=== PATIENT | female | born 1990 | race Caucasian/White ===

== ENCOUNTER 2020-02-25 20:46 | Inpatient (IN) | payer OTHER ==
[~2020-02-25] VITALS: Ht 149.9 cm; Wt 44.9 kg
[2020-02-25 22:15] LABS: HEMATOCRIT. 36.8 % (36.0-48.0); HEMOGLOBIN. 12.3 g/dL (12.0-16.0); MEAN CORPUSCULAR HEMOGLOBIN 29.6 pg (28.0-32.0); MEAN CORPUSCULAR VOLUME 88.6 fL (81.0-99.0); MEAN PLATELET VOLUME 8.5 fl (7.4-10.4); PLATELET 198 x1000/uL (130-400); RED BLOOD CELL COUNT 4.16 mill/uL (4.2-5.4); RED CELL DISTRIBUTION WIDTH 13.8 % (11.6-14.6)
[2020-02-25 22:16] LABS: CHLORIDE 106 mEq/L (98-107)
[2020-02-25 22:19] LABS: CLARITY URINE CLEAR (CLEAR); COLOR URINE YELLOW (YELLOW); KETONES URINE NEGATIVE (NEGATIVE); LEUKOCYTE ESTERASE URINE 2+ (NEGATIVE); NITRITE URINE NEGATIVE (NEGATIVE); OCCULT BLOOD URINE NEGATIVE (NEGATIVE); PROTEIN URINE NEGATIVE (NEGATIVE); SPECIFIC GRAVITY URINE 1.018 (1.005-1.030); UROBILINOGEN URINE 0.2 E.U./dL (0.2-1.0)
[2020-02-25 22:20] LABS: INR 1.1; PROTHROMBIN TIME 11.1 sec (9.6-11.0)
[2020-02-25] MEDS ORDERED: ACETAMINOPHEN 325MG TABLET PO ONE (22:30)
[2020-02-25 22:33] LABS: HCG SCREEN NEGATIVE
[2020-02-25 23:14] LABS: PLATELET ESTIMATE NORMAL
[2020-02-25] MEDS ORDERED: MORPHINE SULFATE 4 MG/ML CPJ (NOT FOR IM USE) IV ONE (23:45)
[2020-02-26] MEDS ORDERED: [UNRECOGNIZED DRUG - MIXTURE] IV SCH (01:45)
[2020-02-26] MEDS ORDERED: PIPERACILLIN/TAZ 3.375G PREMIX 50 ML IV NR (02:15)
[2020-02-26] MEDS ORDERED: MORPHINE SULFATE 2 MG/ML CPJ (NOT FOR IM USE) IV ONE (07:15)
[2020-02-26] MEDS ORDERED: ONDANSETRON HCL 4MG/2ML INJ IV PRN ×3 (08:15→10:30)
[2020-02-26] MEDS ORDERED: MORPHINE SULFATE 2 MG/ML CPJ (NOT FOR IM USE) IV PRN ×3 (08:15→10:30)
[2020-02-26] MEDS ORDERED: DEXT 5%/0.45% NACL KCL 20MEQ/L 1,000 ML IV SCH (09:00)
[2020-02-26] MEDS ORDERED: PIPERACILLIN/TAZ 3.375G PREMIX 50 ML IV SCH (09:00)
[2020-02-26] MEDS ORDERED: SODIUM CHLORIDE 0.9% 1,000 ML IV ONE (10:00)
[2020-02-26] MEDS ORDERED: HYDROMORPHONE HCL/PF 2MG/ML CPJ IV PRN (10:00)
[2020-02-26] MEDS ORDERED: MEPERIDINE HCL/PF 25MG/ML CPJ IV PRN (10:00)
[2020-02-26] MEDS ORDERED: BUPIVACAINE HCL 0.5% (5MG/ML) 50ML ONE (10:01)
[2020-02-26] MEDS ORDERED: SKIN ADHESIVE 0.7 GM EA TOP ONE (10:01)
[2020-02-26] MEDS ORDERED: FENTANYL CITRATE/PF 50MCG/ML 2ML VIAL ONE ×2 (10:17→10:37)
[2020-02-26] MEDS ORDERED: NEOSTIGMINE METHYLSULFATE 1MG/ML 10 ML VIAL ONE (10:17)
[2020-02-26] MEDS ORDERED: PROPOFOL 200MG/20ML VIAL IV ONE (10:17)
[2020-02-26] MEDS ORDERED: MIDAZOLAM HCL 2 MG/2 ML VIAL ONE (10:17)
[2020-02-26] MEDS ORDERED: ROCURONIUM BROMIDE 10MG/ML VIAL 5ML IV ONE (10:17)
[2020-02-26] MEDS ORDERED: SODIUM CHLORIDE 0.9% 10ML VIAL ONE (10:18)
[2020-02-26] MEDS ORDERED: ONDANSETRON HCL 4MG/2ML INJ ONE (10:18)
[2020-02-26] MEDS ORDERED: SUCCINYLCHOLINE CHLORIDE 200MG/10ML IV ONE (10:18)
[2020-02-26] MEDS ORDERED: METOCLOPRAMIDE HCL 10MG/2ML VIAL ONE (10:18)
[2020-02-26] MEDS ORDERED: GLYCOPYRROLATE 0.2 MG/ML 2ML VIAL ONE (10:18)
[2020-02-26] MEDS ORDERED: CEFAZOLIN SODIUM 1000MG/VIAL ONE (10:18)
[2020-02-26] MEDS ORDERED: MORPHINE SULFATE 4 MG/ML CPJ (NOT FOR IM USE) IV PRN (10:30)
[2020-02-26] MEDS ORDERED: HYDROCODONE/ACETAMINOPHEN 5/325MG TABLET PO PRN ×2 (10:30)
[2020-02-26 12:00] VITALS: BP 94/65
[2020-02-26] MEDS ORDERED: PIPERACILLIN/TAZOBACTAM 3.375 G in DEXT 5% WATER 100 ML IV SCH (14:00)
[2020-02-26] MEDS: DEXT 5%/0.45% NACL KCL 20MEQ/L 1,000 ML IV SCH ×2 (15:15→21:28)
[2020-02-26 16:00] VITALS: BP 103/63
[2020-02-26] MEDS ORDERED: POTASSIUM CHLORIDE 20MEQ TABLET SR PO NR (16:00)
[2020-02-26] MEDS: PIPERACILLIN/TAZOBACTAM 2.25 G in DEXTROSE 5% WATER 50 ML IV SCH ×2 (16:04→21:27)
[2020-02-26 16:25] VITALS: BP 98/62
[2020-02-26 17:43] VITALS: BP 103/63
[2020-02-26 20:00] VITALS: BP 99/67
[2020-02-27] VITALS: BP 109/72
[2020-02-27 00:55] VITALS: BP 104/72
[2020-02-27 04:00] VITALS: BP 110/70
[2020-02-27] MEDS: PIPERACILLIN/TAZOBACTAM 2.25 G in DEXTROSE 5% WATER 50 ML IV SCH ×2 (04:08→10:23)
[2020-02-27] MEDS: DEXT 5%/0.45% NACL KCL 20MEQ/L 1,000 ML IV SCH (07:00)
[2020-02-27 08:05] VITALS: BP 110/71
[2020-02-27 12:10] VITALS: BP 108/68
[2020-02-27 12:35] VITALS: BP 113/65
== END 2020-02-27 15:00 | disposition home or self-care (01) | DRG 343 ==
LOC: ER 20:46 → 6WST 02-26 01:33
PROVIDERS: ADMIT Internal Medicine; ATTEND Internal Medicine
PROC: 0DTJ4ZZ Resection of Appendix, Percutaneous Endoscopic Approach (ICD-10-PCS; principal; 2020-02-26)
DX: K35.80 Unspecified acute appendicitis (principal); E87.6 Hypokalemia; Z20.828 Contact with and (suspected) exposure to other viral communicable diseases
CPT/HCPCS: 36415; 74176; 80053; 81003; 84703; 85025; 86850; 86900; 87426; 88304; 93005; 99285; J0330; J0690; J2175; J2250; J2270; J2405; J2543; J2704; J2710; J2765; J3010; J3490; J7030; J7050; J7060

== ENCOUNTER 2022-07-11 19:19 | Emergency (ER) | payer OTHER ==
[~2022-07-11] VITALS: Ht 162.6 cm; Wt 50.0 kg
[2022-07-11] MEDS ORDERED: MORPHINE SULFATE 4 MG/ML CPJ (NOT FOR IM USE) IV ONE (20:00)
[2022-07-11] MEDS ORDERED: ONDANSETRON HCL 4MG/2ML INJ IV ONE (20:00)
[2022-07-11] MEDS ORDERED: SODIUM CHLORIDE 0.9% 1,000 ML IV ONE (20:00)
[2022-07-11 20:40] LABS: BASOPHILS % 0.3 % (0.0-2.0); EOSINOPHILS % 3.5 % (0.0-5.0); HEMATOCRIT. 37.6 % (36.0-48.0); HEMOGLOBIN. 12.7 g/dL (12.0-16.0); MEAN CORPUSCULAR HEMOGLOBIN 29.2 pg (28.0-32.0); MEAN CORPUSCULAR VOLUME 86.6 fL (81.0-99.0); MEAN PLATELET VOLUME 8.8 fl (7.4-10.4); MONOCYTES % 5.9 % (2.0-8.0); NEUTROPHILS % 51.3 % (40.0-76.0); PLATELET 273 x1000/uL (130-400); RED BLOOD CELL COUNT 4.34 mill/uL (4.2-5.4); RED CELL DISTRIBUTION WIDTH 13.8 % (11.6-14.6)
[2022-07-11 20:46] LABS: CHLORIDE 107 mEq/L (98-107)
[2022-07-11 20:49] LABS: PROTHROMBIN TIME 10.4 sec (9.6-11.0)
[2022-07-11 20:52] LABS: CLARITY URINE CLEAR (CLEAR); COLOR URINE YELLOW (YELLOW); KETONES URINE NEGATIVE (NEGATIVE); LEUKOCYTE ESTERASE URINE NEGATIVE (NEGATIVE); NITRITE URINE NEGATIVE (NEGATIVE); OCCULT BLOOD URINE NEGATIVE (NEGATIVE); PROTEIN URINE NEGATIVE (NEGATIVE); SPECIFIC GRAVITY URINE 1.008 (1.005-1.030); UROBILINOGEN URINE 0.2 E.U./dL (0.2-1.0)
[2022-07-11 21:00] LABS: ETHANOL BLOOD < 10 mg/dL
[2022-07-11 21:01] LABS: HCG SCREEN NEGATIVE
[2022-07-11 21:03] LABS: *AMPHETAMINES SCREEN URINE NEGATIVE (NEGATIVE); *BARBITURATES SCREEN URINE NEGATIVE (NEGATIVE); *BENZODIAZEPINES SCREEN URINE NEGATIVE (NEGATIVE); *COCAINE SCREEN URINE NEGATIVE (NEGATIVE); CANNABINOID URINE SCREEN NEGATIVE (NEGATIVE); METHADONE URINE SCREEN NEGATIVE (NEGATIVE); OPIATES URINE SCREEN NEGATIVE (NEGATIVE); PHENCYCLIDINE URINE SCREEN NEGATIVE (NEGATIVE)
[2022-07-11] MEDS ORDERED: IOHEXOL-300 100 ML BOTTLE ONE (23:21)
[2022-07-11] MEDS ORDERED: POLY119P2 MT ×3 (23:58→23:59)
[2022-07-12] VITALS: BP 105/66
== END 2022-07-12 00:21 | disposition home or self-care (01) ==
LOC: ER 19:19
DX: K59.00 Constipation, unspecified (principal); R10.31 Right lower quadrant pain
CPT/HCPCS: 36415; 74177; 76830; 76856; 80053; 80305; 80320; 81003; 81025; 83605; 83690; 84703; 85025; 85610; 86850; 86900; 86901; 87040; 96361; 96374; 96375; 99285; J2270; J2405; J7030; Q9967; Z7610; G0480